=== PATIENT | male | born 1960 | race Caucasian/White ===

== ENCOUNTER → 2017-06-25 | Outpatient (CLI) | payer OTHER | LOC: GMAB 12:36 | PROVIDERS: ATTEND Family Medicine | DX: Z00.00 Encounter for general adult medical examination without abnormal findings (principal) ==

== ENCOUNTER → 2018-09-09 | Outpatient (CLI) | payer OTHER | LOC: GMAE 12:31 | PROVIDERS: ATTEND Family Medicine | DX: Z00.00 Encounter for general adult medical examination without abnormal findings (principal) ==

== ENCOUNTER 2018-09-27 05:38 | Day surgery (SDC) | payer OTHER ==
[2018-09-27] MEDS ORDERED: LIDOCAINE 1% 10 ML VIAL INJ ONE (07:00)
[2018-09-27] MEDS ORDERED: PROPOFOL 200 MG/20 ML VIAL IV ONE (07:00)
[2018-09-27] MEDS ORDERED: LACTATED RINGERS 1,000 ML ONE (08:24)
[2018-09-27] MEDS ORDERED: MIDAZOLAM INJ 2 MG/2 ML VIAL ONE (09:39)
[2018-09-27] MEDS ORDERED: fentaNYL CITRATE INJ 50 MCG/ML AMP ONE (10:02)
[2018-09-27 11:25] VITALS: BP 115/84; TEMP 97.1; O2SAT 100
--- NOTE | 2018-10-04 09:13 | OP ---
DATE OF PROCEDURE: 09/27/18 PREOPERATIVE DIAGNOSIS: 1. Screening colonoscopy. SURGEON: Yusuf Cruz MD PROCEDURE: After complete informed consent and being seen in the office, the patient was placed in the lateral position. Adequate anesthesia was given. Digital rectal examination was done which appeared normal with no blood. Colonoscope was then gently inserted. We traversed the entire colon to the cecum, identifying the ileocecal valve, which we could not intubate. There was an adequate prep. Upon withdrawal, the ascending and transverse colon were normal. There was approximately 2.5 mm polyp that was excised completely with forceps and sent as specimen. The remainder of the colon with a good exam was normal. It was overall a good exam. We will await final pathology and make further recommendations. He tolerated the procedure and was awakened and taken to Recovery to be discharged. #[id number] MTDD
== END 2018-09-27 11:15 | disposition home or self-care (01) ==
LOC: AMB 05:38
PROVIDERS: ATTEND Surgery
DX: Z12.11 Encounter for screening for malignant neoplasm of colon (principal); D12.3 Benign neoplasm of transverse colon; I10 Essential (primary) hypertension; E78.5 Hyperlipidemia, unspecified; K21.9 Gastro-esophageal reflux disease without esophagitis; F32.9 Major depressive disorder, single episode, unspecified; Z80.3 Family history of malignant neoplasm of breast; Z82.49 Family history of ischemic heart disease and other diseases of the circulatory system; Z83.3 Family history of diabetes mellitus; Z88.0 Allergy status to penicillin; Z79.899 Other long term (current) drug therapy

== ENCOUNTER → 2019-09-11 | Outpatient (CLI) | payer OTHER | LOC: GMAE 10:37 | PROVIDERS: ATTEND Family Medicine | DX: Z00.00 Encounter for general adult medical examination without abnormal findings (principal) ==